=== PATIENT | male | born 1945 | race Caucasian/White ===

== ENCOUNTER 2018-12-12 06:45 | Day surgery (SDC) | payer MEDICARE ==
[~2018-12-12] VITALS: Ht 180.3 cm; Wt 59.7 kg
[2018-12-12 07:00] VITALS: BP 147/76
[2018-12-12] MEDS ORDERED: ALBU18HF2 INH (08:11)
[2018-12-12] MEDS ORDERED: PREG50CA PO (08:11)
[2018-12-12] MEDS ORDERED: TIOT18CA3 INH (08:11)
[2018-12-12] MEDS ORDERED: ASPI-611 PO (08:11)
[2018-12-12] MEDS ORDERED: FLO0.4C PO (08:11)
[2018-12-12] MEDS ORDERED: blood pressure med (08:11)
[2018-12-12] MEDS ORDERED: FLUT1DIS INH (08:11)
[2018-12-12 08:47] VITALS: BP 130/71
[2018-12-12 09:00] VITALS: BP 137/99
[2018-12-12] MEDS ORDERED: LIDOcaine 1% 30ml preserv. free vial SQ ONE (09:00)
[2018-12-12 10:06] LABS: TOTAL PROTEIN,BODY FLUID 2.7 G/DL
== END 2018-12-12 09:20 | disposition home or self-care (01) ==
LOC: SSTAY O 06:45
PROVIDERS: ATTEND Radiology Vascular & Interventional Radiology
DX: J90 Pleural effusion, not elsewhere classified (principal); I10 Essential (primary) hypertension; J42 Unspecified chronic bronchitis; Z98.890 Other specified postprocedural states; Z79.82 Long term (current) use of aspirin; Z79.899 Other long term (current) drug therapy; Z88.6 Allergy status to analgesic agent
CPT/HCPCS: 32555; 71045; 83615; 84157; C1729; J3490